=== PATIENT | female | born 1965 | race African-American/Black ===

== ENCOUNTER 2016-05-14 22:15 | Emergency (ER) | payer BC ==
--- NOTE | 2016-05-14 23:43 | ERNOTE ---
Upper Extremity HPI - General Extremities Pain Location: hand: left, 5th finger: left Time Seen by Provider: 05/14/16 23:31 Source: patient Exam Limitations: no limitations - Immun/Allergies/Home Medications Immunizations: IMMUNIZATION HX Immunizations Up to Date Yes History of Influenza Vaccine No Hx Pneumococcal Vaccination No Allergies/Adverse Reactions: Allergies Allergy/AdvReac Type Severity Reaction Status Date / Time morphine AdvReac hypotension Verified 10/13/15 18:25 Home Medications: HOME MEDICATIONS Xanax 0.5 mg PO PRN PRN 05/31/13 [Last Taken Unknown] Lisinopril/Hydrochlorothiazide [Lisinopril-Hctz 20-12.5 mg Tab] 1 each PO DAILY 03/27/14 [Last Taken Unknown] Ibuprofen [Motrin] 800 mg PO QID PRN #60 tab 11/13/14 [Last Taken Unknown] traMADol HCL [Ultram] 50 - 100 mg PO QID PRN #20 tab 05/15/16 [Last Taken Unknown] - History of Present Illness Narrative: Pt slipped and caught her hand on a rail bending her small finger back. she was initially concerned about the finger but then realized that the hand hurt more than the finger Occurred: this morning Location of Incident: home Severity: moderate Method of Injury: Reports: fell, direct blow Reason for Fall: Reports: slipped Loss of Consciousness: Reports: no loss of consciousness Modifying Factors - (Improves): Reports: cold therapy Modifying Factors - (Worsens): Reports: movement Associated Symptoms: Reports: tingling Other Injuries: Reports: none - Patient's Past Medical History Patient History - Medical: Anxiety Patient History - Cardiac/Respiratory: Hypertension Patient History - Cancer: No Hx of Cancer Patient History - Surgical Procedures: Cholecystectomy, Colonoscopy, Tubal Ligation Patient History - Other: None LMP (females 10-50): 3 weeks - Social History Living Situations: home Abuse History: No History of abuse Psych History: Hx of Anxiety Have you smoked in the past 12 months: No Do you dip or chew tobacco: No Alcohol Use: occasionally Drug Use: none - Immunizations Immunizations Up to Date: Yes Hx Pneumococcal Vaccination: No History of Influenza Vaccine: No ED Progress - Vital Signs Vital Signs: Vital Signs 05/14/16 22:15 Temperature 35.9 C L Pulse Rate 71 Respiratory 16 Rate Blood Pressure 153/95 O2 Sat by Pulse 98 Oximetry - X-Ray X-Ray #1 X-Ray: hand Interpretation: Interp. by me X-ray Comments: oblique left 5th MC shaft fracture at distal 1/3 minimally displaced. Slightly shortened no apparent rotation - Progress/Reassessment Chief Complaint: Upper Extremity Injury/Problem Progress:: Unchanged Progress Note-Subjective: 05/14/16 23:[address] Russo in ortho. He agrees with splinting and follow up in orthopedic office later in the week. Departure Clinical Impression: Fracture of metacarpal bone of left hand - Departure Disposition: Home Follow Up Needed Condition: Good Instructions: Metacarpal Fracture, [id number] Referrals: Clau Madison FNP [Primary Care Provider] - Roger Russo MD [Staff Physician] - Prescriptions: traMADol HCL [Ultram] 50 - 100 mg PO QID PRN #20 tab PRN Reason: Pain
[2016-05-15] MEDS ORDERED: traMADol HCL 50 MG TABLET PO ONE (00:02)
[2016-05-15] MEDS ORDERED: traMADol HCL 50 MG TABLET ONE (00:11)
[2016-05-15 00:21] VITALS: BP 119/63
== END 2016-05-15 00:19 | disposition home or self-care (01) ==
LOC: ER 22:15
PROC: 2W3FX1Z Immobilization of Left Hand using Splint (ICD-10-PCS; principal; 2016-05-14)
DX: M84.442A Pathological fracture, left hand, initial encounter for fracture (principal); X58.XXXA Exposure to other specified factors, initial encounter; Y92.009 Unspecified place in unspecified non-institutional (private) residence as the place of occurrence of the external cause; I10 Essential (primary) hypertension

== ENCOUNTER 2016-05-17 06:43 | Day surgery (SDC) | payer BC ==
[~2016-05-17 06:43] MED LIST: ACETAMINOPHEN 500 MG TABLET PO PRN; MAG HYDROX/ALUMINUM HYD/SIMETH 30 ML UDC PO PRN; MAGNESIUM HYDROXIDE 30 ML UDC PO PRN; ONDANSETRON HCL/PF 2 MG/ML VIAL IV PRN; PROMETHAZINE HCL 25 MG in DEXTROSE 5 % IN WATER 50 ML IV PRN; RINGERS SOLUTION,LACTATED 1,000 ML IV PRN; ZOLPIDEM TARTRATE 5 MG TABLET PO PRN; ceFAZolin SODIUM 1 GM VIAL IV PRN; diphenhydrAMINE HCL 50 MG/ML VIAL IV PRN
[2016-05-17] MEDS ORDERED: RINGERS SOLUTION,LACTATED 1,000 ML IV ONE ×2 (07:50→09:00)
[2016-05-17] MEDS ORDERED: BUPIVACAINE HCL 50 ML VIAL IJ ONE ×2 (08:10)
--- NOTE | 2016-05-17 09:30 | OR ---
Operative Report - Dictated Report Narrative: Date: 05/17/2016 Physician: Roger Russo M.D. Animal [employer] Agent Supervisor: Matthew Min PA-C Preoperative diagnosis: Left fifth metacarpal shaft fracture Postoperative diagnosis: Left fifth metacarpal shaft fracture Procedure: Open reduction internal fixation of left fifth metacarpal shaft fracture Anesthesia: General Plus local Complications: None Estimated blood loss: Minimal Tourniquet time: 49 Minutes at 250 mmHg Specimens: None Retained implants: Min and nephew 2.0 mm 6 hole variable locking plate and screws Drains: None Indications: Rubi Is a 51 year-old male who sustained a left fifth metacarpal shaft fracture. Initially seen in the ED and placed in a temporary splint and then followed up in my office. Her fracture pattern and amount of displacement I recommended open reduction internal fixation. The risks, benefits, and alternatives were discussed in clinic. The risks being bleeding, infection, nerve, tendon, blood vessel injury, malunion/nonunion, implant failure, extensor tendon rupture, and wound complications. Consent was obtained in the clinic. Procedure: After marking the correct extremity in the preoperative holding area, a timeout was performed in the operating room. IV antibiotics consisting of 2 g of Ancef were administered prior to the procedure. A well-padded tourniquet was applied to the operative upper arm. The operative arm was then prepped and draped in the usual sterile fashion. The arm was exsanguinated and the tourniquet was inflated to 250 mmHg. 0.5% Marcaine without epinephrine was infused into the projected incision site over the fifth metacarpal. An approximately 4 cm longitudinal incision was made over the ulnar aspect of the fifth metacarpal. Blunt dissection and electrocautery were used to dissect down through the subcutaneous fat to the level of the extensor tendon sheath. This was incised longitudinally and the extensor tendons retracted radially. A sharp knife was then used to expose the fracture site and the metacarpal shaft more proximally and distally. The fracture site was debrided using a sharp knife and a pituitary rongeur. [id number] bone reduction clamps were used to obtain an anatomic reduction and a 2.0 mm lag screw was placed perpendicular to the fracture providing good compression and initial stability of the fracture. A 6- hole 2.0 mm neutralization plate was then placed over the dorsal ulnar aspect of the metacarpal shaft. Placing 2 screws proximal and 2 screws distal to the fracture site. Fluoroscopic images were obtained which confirmed anatomic reduction and good position of our plate and screws. The finger was taken through range of motion and noted to have no malrotation or crossover with the adjacent ring finger. Once we felt we had adequately stabilized the fracture the wound was thoroughly irrigated. The periosteum and deep tissue over the metacarpal was closed over the top of the plate using interrupted 4-0 Vicryl. The tourniquet was then deflated. Hemostasis was obtained using pressure and bipolar cautery. Once adequate hemostasis was in place, additional local anesthetic was placed in the skin edges, and the subcutaneous tissue was closed with interrupted 4-0 Vicryl. The skin was closed with 4-0 nylon and sterile dressings consisting of Xeroform, 4 x 4, soft roll, and an ulnar gutter splint was applied. All sponge, needle, blade, and instrument counts were correct prior to closing the wounds. The patient was awoken and transferred to the postanesthesia care unit in stable condition.
[2016-05-17] MEDS ORDERED: traMADol HCL 50 MG TABLET PO PRN (10:15)
[2016-05-17] MEDS ORDERED: traMADol HCL 50 MG TABLET ONE (10:22)
[2016-05-17 11:19] VITALS: BP 131/78
[2016-05-17] MEDS ORDERED: SENNOSIDES/DOCUSATE SODIUM 1 TAB TABLET PO SCH (21:00)
== END 2016-05-17 06:44 | disposition home or self-care (01) ==
LOC: AMB 06:43
PROVIDERS: ATTEND Orthopaedic Surgery
PROC: 0PSQ04Z Reposition Left Metacarpal with Internal Fixation Device, Open Approach (ICD-10-PCS; principal; 2016-05-17 08:00)
DX: S62.327A Displaced fracture of shaft of fifth metacarpal bone, left hand, initial encounter for closed fracture (principal); I10 Essential (primary) hypertension; D64.9 Anemia, unspecified; Z87.891 Personal history of nicotine dependence; Z68.29 Body mass index [BMI] 29.0-29.9, adult; W10.8XXA Fall (on) (from) other stairs and steps, initial encounter